=== PATIENT | female | born 1970 | race Caucasian/White ===

== ENCOUNTER → 2023-04-12 09:35 | Outpatient (CLI) | payer OTHER, SELFPAY ==
--- NOTE | 2023-04-12 | DI.ECHO.S_ITS ---
[facility] +---------+ : : [address] : [place] : : : : [id number] : : : : Phone: [phone]---------+ Echocardiogram Report + + :Name: ADILENE MENEZES Study Date: 04/12/2023 Height: 65 in : :[facility] ReadingLocation: Weight: 179 lb : : Gender: Female BSA: 1.9 m2 : :: 1970 Age: 52 yrs BP: 135/88 mmHg: :Reason For Study: CARDIAC MURMUR : :Ordering Physician: JOHNNY, : :ALYSON Jeong Performed By: Joan Hendricks : :Referring: ALYSON TURNER : + + Interpretation Summary 1) Normal left ventricular thickness, size, wall motion, and systolic function (EF 60-65%). 2) Normal right ventricular size and function. 3) Diastolic parameters suggest a pseudonormalization pattern, consistent with probable elevated filling pressures. 4) No significant valvular abnormalities. 5) No prior Echo available for comparison. Procedure: A two-dimensional transthoracic echocardiogram with color flow and Doppler was performed. The study quality was technically adequate. There is no prior echocardiogram noted for this patient. The patient was in sinus rhythm with heart rates between 57-68 bpm during the exam. Left Ventricle: The left ventricle is normal in size and wall thickness. The ejection fraction is estimated to be 60-65%. Left ventricular systolic function appears normal without focal wall motion abnormalities. Diastolic parameters suggest a pseudonormalization pattern, consistent with probable elevated filling pressures. Right Ventricle: The right ventricle is normal in size and function. Atria: The left atrium is borderline dilated. Right atrial size is normal. There is no Doppler evidence for an interatrial shunt. Mitral Valve: There is mild mitral annular calcification. The mitral valve leaflets appear mildly thickened, but open well. There is no mitral regurgitation noted. Aortic Valve: There is mild aortic valve sclerosis. The aortic valve is not well visualized. The aortic valve opens well. There is no aortic valve stenosis. No aortic regurgitation is present. Tricuspid Valve: The tricuspid valve is normal in structure and function. There is a trace or physiologic amount of tricuspid regurgitation. Pulmonary artery pressures cannot be estimated because of the lack of a measurable TR jet velocity. Pulmonic Valve: The pulmonic valve leaflets are thin and pliable; valve motion is normal. There is no pulmonic valvular regurgitation. Great Vessels: The aortic root is normal size. The dimensions of the ascending aorta are normal. The IVC is of normal diameter and collapses greater than 50% with a sniff. This suggests a low right atrial pressure of 3 mm Hg. Pericardium/ Pleura There is no pericardial effusion. There is no pleural effusion. MMode/2D Measurements & Calculations LVIDd: 4.6 cm LVOT diam: 2.0 cm LVIDs: 3.0 cm Ao root diam: 2.7 cm FS: 33.9 % asc Aorta Diam: 2.9 cm IVSd: 0.86 cm Ao Arch Diam (Prox Trans): 2.5 cm LVPWd: 0.84 cm LV rossi. diameter/BSA (cm/m^2): 2.4 LV sys. diameter/BSA (cm/m^2): 1.6 LA A2 area: 21.8 cm2 RA long axis: 4.6 cm LA A4 area: 17.7 cm2 RA area: 13.5 cm2 LA length (vol): 5.1 cm RA vol: 33.9 ml LA vol: 64.1 ml RA : 18.0 ml/m2 LA vol index: 34.0 ml/m2 IVC diam: 0.86 cm RVD1 (basal): 3.4 cm RVD2 (mid): 2.4 cm TAPSE: 2.6 cm Doppler Measurements & Calculations Ao V2 max: 184.3 cm/sec LVOT Max Ryan: 127.1 cm/sec Ao V2 mean: 124.2 cm/sec LV V1 max P.5 mmHg Ao max P.6 mmHg LV V1 VTI: 29.6 cm Ao mean P.7 mmHg NEELIMA(I,D): 2.3 cm2 Ao V2 VTI: 38.8 cm NEELIMA(V,D): 2.1 cm2 sev ratio: 0.76 NEELIMA indexed to BSA (cm^2/m^2): 1.2 MV E max ryan: 121.5 cm/sec PA V2 max: 97.6 cm/sec MV A max ryan: 113.3 cm/sec PA V2 mean: 70.6 cm/sec MV E/A: 1.1 PA mean P.2 mmHg Med Peak E' Ryan: 7.5 cm/sec E/E' med: 16.2 Lat Peak E' Ryan: 6.6 cm/sec E/E' lat: 18.5 E/e' average: 17.3 MV dec time: 0.30 sec MVA(VTI): 1.7 cm2 MV V2 mean: 81.2 cm/sec SV(LVOT): 91.0 ml MV mean P.1 mmHg MV V2 VTI: 52.2 cm Reading Physician:12:24 PM
== END ==
PROVIDERS: PCP Physician Assistant; Referring Provider Physician Assistant; Visit Provider Physician Assistant
DX: I34.81 Nonrheumatic mitral (valve) annulus calcification (principal); I35.8 Other nonrheumatic aortic valve disorders; R07.9 Chest pain, unspecified; R42 Dizziness and giddiness; R01.1 Cardiac murmur, unspecified
CPT/HCPCS: 93306

== ENCOUNTER → 2023-04-23 09:08 | Outpatient (CLI) | payer OTHER, SELFPAY ==
--- NOTE | 2023-04-23 | DI.MRI.S_ITS ---
PROCEDURE: MR HEAD/BRAIN WO/W CON INDICATIONS: Other amnesia TECHNIQUE: Noncontrast axial T1 spin echo, axial T2 fast spin echo, sagittal and axial FLAIR, coronal T2 fast spin echo, axial gradient echo, axial diffusion and ADC through the brain. After the administration of contrast, axial and coronal and sagittal 3D VIBE or T1 spin echo with fat saturation through the brain. COMPARISON: None. FINDINGS: Image quality: Excellent. CSF Spaces: Basal cisterns are patent. No extra-axial fluid collections. Ventricles are normal in size and shape. Note is made of a left lateral cortical sulcus containing a angular conforming susceptibility artifact best seen on coronal imaging series 15, image 100 and gradient imaging series 10, image 11. This shows no enhancement, and has a low signal intensity on axial T2 imaging. It is small in size, measuring approximately 1 cm AP and 4 mm craniocaudad tapering within the sulcus producing an angular morphology. Brain: No midline shift. No intracranial bleeds or masses. No abnormal intracranial enhancement. The brainstem appears normal. Diffusion-weighted images demonstrate no acute ischemic insults. No chronic ischemic insults. Normal intravascular flow voids are present. Skull and face: Calvarial marrow is normal in signal. Orbits appear normal. Sinuses: Sinuses and mastoids appear clear. IMPRESSION: The area of left temporal sulcus susceptibility artifact discussed above is small in size, and conforms to the angular morphology of the involved sulcus, and is consistent with likelihood of blood products open (which could be subacute or chronic close) in this clinical circumstance. A CT is not available for review with reference to this site. If available from elsewhere that could be obtained and reviewed. No brain tissue injury is found. No abnormal enhancing lesion is found. Dictated by: Erasmo Soto M.D. on 04/23/2023 at 13:06 Approved by: Erasmo Soto M.D. on 04/23/2023 at 13:13
--- NOTE | 2023-04-23 18:51 | DI.NM.S_ITS ---
DATE OF SERVICE: 04/23/2023 PROCEDURE PERFORMED: Exercise treadmill stress and rest myocardial perfusion imaging with gating to assess ejection fraction and regional wall motion. ORDERING PROVIDER: Deyanira Bonner PA-C. INDICATIONS: The patient is a 52-year-old hypertensive female with a history of chest discomfort. CARDIAC STRESS: The patient was able to exercise for 8 minutes on a standard Ethan protocol suggesting average exercise capacity with an ALFREDITO of -3%, achieving 8.0 METS. She had a normal heart rate response to exercise, achieving a maximum heart rate of 169 bpm (100% of her predicted maximum). She had a hypertensive blood pressure response with a resting blood pressure of 160/90 that increased to a maximum of 235/118. She had no chest discomfort or other anginal symptoms. Her resting ECG is normal and with stress there are no significant ST shifts or arrhythmias except for rare PVCs, rarely in couplets. At 6 minutes 25 seconds of exercise at a heart rate of 146 bpm, 25.2 mCi of technetium-99m Myoview was injected and she was imaged 10 minutes later using a gated SPECT acquisition protocol. Earlier in the day while at rest, she had been injected with 12.1 mCi of technetium-99m Myoview and was imaged 15 minutes later, again using a gated SPECT acquisition protocol. FINDINGS: 1. Raw data. There is fair myocardial tracer uptake with moderate breast shadows noted that likely produce some attenuation across the anterior wall. Lung/heart ratio is normal at 0.29 with a normal TID ratio of 0.96. 2. Quantitated gated SPECT: Post-stress ejection fraction is 82% without any focal wall motion abnormality and specifically the distal anterior wall has brisk contractility. Resting ejection fraction is 76% with a normal end- diastolic volume of 109 mL. 3. Myocardial perfusion imaging: Post-stress supine images show a mild perfusion defect in the distal anterior wall extending to the apex in a pattern that would be most consistent with breast attenuation artifact, supported by its near-complete resolution on the prone images which reveal a fairly normal, homogeneous tracer pattern. The resting images show a similar perfusion pattern to the post-stress supine images, although with some slight improvement of the distal anterior defect. IMPRESSION: 1. Probable normal myocardial perfusion study. 2. Predominantly fixed, slightly reversible, distal anterior perfusion defect that resolves on prone imaging, most consistent with breast attenuation artifact although a small volume of myocardial ischemia cannot be entirely excluded, yet if present would be low risk. 3. Normal left ventricular size and systolic function without any focal wall motion abnormality. 4. Average exercise capacity without angina or ECG evidence of ischemia but a hypertensive blood pressure response to exercise with rare PVCs, rarely in couplets but no complex ventricular ectopy. Mireille West - Artur/ doc#: [id number]/job#: [id number] dd: 04/23/2023 16:00:00 dt: 04/23/2023 18:26:00 DICTATING MD/COPIES TO: Hitesh Lino MD; Deyanira Bonner PA-C COPIES MNE: [place]; ; Deyanira Bonner PA-C
== END ==
PROVIDERS: PCP Physician Assistant; Referring Provider Physician Assistant; Visit Provider Physician Assistant
DX: R07.89 Other chest pain (principal); I10 Essential (primary) hypertension; Z87.820 Personal history of traumatic brain injury; R41.3 Other amnesia
CPT/HCPCS: 70553; 78452; 93017; A9502; A9579